=== PATIENT | male | born 1950 | race African-American/Black ===

== ENCOUNTER 2020-04-17 23:11 | Emergency (ER) | payer OTHER ==
[~2020-04-17] VITALS: Ht 177.8 cm; Wt 83.9 kg
[2020-04-17] MEDS ORDERED: GABAPENTIN100 MG PO (23:38)
[2020-04-17] MEDS ORDERED: HYDRALAZINE 2525 MG PO (23:39)
[2020-04-17] MEDS ORDERED: LORATIDINE 10 M10 M1 PO (23:40)
[2020-04-17] MEDS ORDERED: FLONASE 0.05%50 MCG NARES (23:40)
[2020-04-17] MEDS ORDERED: PAIN RELIEF325 MG PO (23:40)
[2020-04-17] MEDS ORDERED: NITROSTAT0.4 M1 SUBLING (23:41)
[2020-04-17] MEDS ORDERED: VITAMIN B-121000 MC2 SUBLING (23:46)
[2020-04-17] MEDS ORDERED: REGLAN 5 MG TAB5 MG PO (23:46)
[2020-04-17] MEDS ORDERED: VITAMIN B-650 M1 PO (23:48)
[2020-04-17] MEDS ORDERED: VITAMIN B-1100 M2 PO (23:48)
[2020-04-17] MEDS ORDERED: ELIQUIS2.5 MG PO (23:49)
[2020-04-17] MEDS ORDERED: NORVASC 2.5 MG2.5 M1 PO (23:49)
[2020-04-17] MEDS ORDERED: DEXAMETHASONE1 MG PO (23:49)
[2020-04-17] MEDS ORDERED: VITAMIN D3250 MC2 PO (23:50)
[2020-04-17] MEDS ORDERED: DUCODYL5 MG PO (23:51)
[2020-04-17] MEDS ORDERED: RENAL-VITE TAB0.8 MG PO (23:52)
[2020-04-17] MEDS ORDERED: NORCO 5-325 TA1 EAC1 PO (23:52)
[2020-04-17] MEDS ORDERED: NIFEDIPINE ER30 M1 PO (23:53)
[2020-04-17] MEDS ORDERED: CATAPRES0.1 MG PO (23:54)
[2020-04-17 23:57] LABS: ABSOLUTE NEUTROPHILS 6.8 thou/uL (1.4-8.2); BASOPHILS 0.4 % (0.0-2.0); EOSINOPHILS 0.6 % (0.0-3.0); HEMATOCRIT 22.3 % (42.0-52.0); HEMOGLOBIN 7.4 gm/dL (14.0-18.0); LYMPHOCYTES 6.9 % (24.0-44.0); MCH 33.4 pg (26.0-34.0); MONOCYTES 5.1 % (1.0-8.0); PLATELET COUNT 149 thou/uL (150-400); RBC 2.21 mil/uL (4.50-6.00); RDW 17.9 % (10.5-14.5); WBC 7.8 thou/uL (4.0-11.0)
[2020-04-18] LABS: CALCIUM 8.4 mg/dL (8.5-10.1); POTASSIUM 4.8 mmol/L (3.5-5.1)
[2020-04-18 00:30] VITALS: BP 135/73
== END 2020-04-18 01:26 ==
LOC: ER 23:11
PROVIDERS: Emergency Medicine
DX: N18.9 Chronic kidney disease, unspecified (principal); D63.1 Anemia in chronic kidney disease; Z99.2 Dependence on renal dialysis; Z88.8 Allergy status to other drugs, medicaments and biological substances